=== PATIENT | female | born 1965 | race Caucasian/White ===

== ENCOUNTER 2017-02-18 20:19 | Emergency (ER) | payer BC ==
[~2017-02-18] VITALS: Ht 157.5 cm; Wt 78.0 kg
[2017-02-18] MEDS ORDERED: LORAZEPAM 0.5MG TABLET PO ONE (21:00)
[2017-02-18] MEDS ORDERED: KETOROLAC 30MG/ML VIAL IV ONE (21:00)
[2017-02-18 21:05] LABS: BASOPHILS % 0.7 % (0.0-2.0); EOSINOPHILS % 8.4 % (0.0-5.0); HEMATOCRIT. 35.1 % (36.0-48.0); HEMOGLOBIN. 11.6 g/dL (12.0-16.0); LYMPHOCYTES % 26.2 % (20.0-50.0); MEAN CORPUSCULAR HEMOGLOBIN 27.3 pg (28.0-32.0); MEAN PLATELET VOLUME 10.3 fl (7.4-10.4); MONOCYTES % 6.6 % (2.0-8.0); NEUTROPHILS % 58.1 % (40.0-76.0); PLATELET 167 x1000/uL (130-400); RED BLOOD CELL COUNT 4.23 mill/uL (4.2-5.4); RED CELL DISTRIBUTION WIDTH 14.3 % (11.6-14.6)
[2017-02-18 21:08] LABS: INR 1.1; PROTHROMBIN TIME 11.1 sec
[2017-02-18 21:17] LABS: CARBON DIOXIDE 25 mEq/L (21-32); CHLORIDE 109 mEq/L (98-107); TROPONIN I 0.02 ng/mL (0.00-0.04)
[2017-02-19 00:02] VITALS: BP 126/78
== END 2017-02-19 00:03 | disposition home or self-care (01) ==
LOC: ER 20:33
DX: R07.89 Other chest pain (principal); I25.10 Atherosclerotic heart disease of native coronary artery without angina pectoris; I10 Essential (primary) hypertension; Z95.5 Presence of coronary angioplasty implant and graft; I25.2 Old myocardial infarction; Z79.82 Long term (current) use of aspirin
CPT/HCPCS: 36415; 71010; 80048; 81025; 83880; 84484; 85025; 85610; 93005; 96374; 99285; J1885; Z7610